=== PATIENT | male | born 1980 | race Two or more races ===

== ENCOUNTER 2020-10-05 22:39 | Inpatient (IN) | payer MEDICAID ==
[~2020-10-05] VITALS: Ht 195.6 cm; Wt 183.9 kg
--- NOTE | 2020-10-05 22:54 | NUR ---
BIB EMS PT AT [facility]. 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 PT STATES NO BLEEDING AT THIS TIME, PT HAS KEYA SOB AND DIFFICULTY CATCHING BREATH. PLACED ON ALL MONITORS AND STIPPED AND PLACED IN GOWN. AWAITING ERP EVAL
[2020-10-05] MEDS ORDERED: ONDANSETRON 2MG/ML, 2ML IVPush ONE (23:00)
[2020-10-05] MEDS ORDERED: ACETAMINOPHEN 500 MG TABLET PO ONE (23:00)
[2020-10-05] MEDS ORDERED: SODIUM CHLORIDE 0.9% 1,000ML IVBOLUS ONE (23:00)
[2020-10-05] MEDS ORDERED: VANCOMYCIN PER PHARMACY MC ONE (23:00)
[2020-10-05] MEDS ORDERED: MORPHINE SULFATE 4 MG/ML, 1ML IVPush PRN (23:00)
[2020-10-05] MEDS ORDERED: CEFTRIAXONE PMX 1GM/50ML 50 ML IVPB ONE (23:00)
[2020-10-05] MEDS ORDERED: VANCOMYCIN 2,500 MG in SODIUM CHLORIDE 0.9% 500 ML IV ONE (23:30)
[2020-10-05] MEDS ORDERED: CEFTRIAXONE PMX 1GM/50ML 50 ML ONE (23:41)
[2020-10-05] MEDS ORDERED: ONDANSETRON 2MG/ML, 2ML ONE (23:41)
[2020-10-05] MEDS ORDERED: ACETAMINOPHEN 500 MG TABLET ONE (23:42)
[2020-10-05] MEDS ORDERED: MORPHINE SULFATE 4 MG/ML, 1ML ONE (23:42)
[2020-10-05 23:52] LABS: MEAN CORPUSCULAR HEMOGLOBIN 26.8 pg (27.5-34.5); MEAN PLATELET VOLUME 8.5 fL (7.4-10.4); PLATELET COUNT 262 x10^3/uL (130-400); RED BLOOD COUNT 4.92 x10^6/uL (4.38-5.82); RED CELL DISTRIBUTION WIDTH 14.9 % (9.4-14.8)
--- NOTE | 2020-10-05 23:53 | NUR ---
[facility] HUNG AFTER BLOOD CULTURES. PT MEDICATED PER EMAR. PT ON ALL MONITORS, PT STILL HAS INCREASED WORK OF BREATHING
[2020-10-06 00:03] LABS: ALANINE AMINOTRANSFERASE 44 U/L (12-78); ALBUMIN 3.2 g/dL (3.4-5.0); ANION GAP 8 mmol/L (5-15); CALCIUM 9.2 mg/dL (8.5-10.1); CHLORIDE 100 mmol/L (98-107)
[2020-10-06 00:05] LABS: ALKALINE PHOSPHATASE 74 U/L (45-117); TOTAL PROTEIN 9.6 g/dL (6.4-8.2)
[2020-10-06 00:34] LABS: MD YES
[2020-10-06 00:37] LABS: ANISOCYTOSIS 1+; BANDS%(MANUAL) 23 % (0-7); LYMPH#(MANUAL) 0.63 x10^3/uL (1-3.4); LYMPHS% (MANUAL) 2 % (22-44); MONOS#(MANUAL) 0.31 x10^3/uL (0.3-2.7); MONOS% (MANUAL) 1 % (2-9); SEG#(MANUAL) 23.16 x10^3/uL (1.8-6.8); SEGS% (MANUAL) 74 % (42-75)
[2020-10-06 00:38] LABS: <PLATELET ESTIMATE> ADEQUATE; <PLT MORPHOLOGY> NORMAL PLT MORPH; PMNS WITH VACUOLES 1+
[2020-10-06] MEDS ORDERED: SODIUM CHLORIDE 0.9% 1,000ML IVBOLUS ONE (01:00)
--- NOTE | 2020-10-06 01:31 | NUR ---
REPORT GIVEN TO LANCE CARTY.
--- NOTE | 2020-10-06 01:46 | NUR ---
COVID SWAB TAKEN, VITALS UPDATED
[2020-10-06] MEDS ORDERED: morphine SULFATE 10 MG/ML, 1ML IVPush PRN (02:00)
[2020-10-06] MEDS ORDERED: VANCOMYCIN PER PHARMACY MC PRN (02:00)
[2020-10-06] MEDS ORDERED: MELATONIN 5 MG TABLET PO PRN (02:00)
[2020-10-06] MEDS ORDERED: LABETALOL 5MG/ML, 20ML IVPush PRN (02:00)
[2020-10-06] MEDS ORDERED: ONDANSETRON 2MG/ML, 2ML IVPush PRN (02:00)
[2020-10-06] MEDS ORDERED: THIAMINE 200 MG in SODIUM CHLORIDE 0.9% 50 ML IV ONE (02:00)
[2020-10-06] MEDS ORDERED: SODIUM CHLORIDE 0.9% 1,000 ML IV SCH (02:00)
[2020-10-06] MEDS ORDERED: PHARMACY MAY ADJ FOR RENAL FX MC PRN (02:00)
[2020-10-06] MEDS ORDERED: ACETAMINOPHEN 325 MG TABLET PO PRN (02:00)
[2020-10-06 02:10] VITALS: BP 124/79
[2020-10-06] MEDS ORDERED: PHARMACOKINETIC MONITORING MC PRN (02:30)
[2020-10-06] MEDS ORDERED: PHARMACOKINETIC CONSULTATION MC ONE (02:30)
[2020-10-06 02:41] LABS: CREATINE KINASE, TOTAL 2834 U/L (39-308)
[2020-10-06] MEDS: HEPARIN 5,000 UNITS/ML, 1ML SQ SCH ×2 (02:55→10:09)
[2020-10-06] MEDS: AMPICILLIN/SULBACTAM 3 GM in SODIUM CHLORIDE 0.9% 100 ML IV SCH ×4 (04:12→22:15)
[2020-10-06 04:27] LABS: CHOL/HDL RATIO 2.9; LDL/HDL RATIO 1.3 (0.5-3.0)
[2020-10-06 06:30] VITALS: BP 117/80
[2020-10-06] MEDS: MULTIVITAMIN 1 TABLET PO SCH (08:31)
[2020-10-06] MEDS: THIAMINE 100MG TABLET PO SCH (08:31)
[2020-10-06] MEDS: FOLIC ACID 1 MG TABLET PO SCH (08:31)
[2020-10-06] MEDS: SENNA/DOCUSATE TABLET PO SCH (08:32)
[2020-10-06 09:05] LABS: MEAN CORPUSCULAR HEMOGLOBIN 26.7 pg (27.5-34.5); MEAN CORPUSCULAR HGB CONC 32.7 g/dL (33.2-36.2); MEAN PLATELET VOLUME 8.6 fL (7.4-10.4); PLATELET COUNT 223 x10^3/uL (130-400); RED BLOOD COUNT 4.38 x10^6/uL (4.38-5.82); RED CELL DISTRIBUTION WIDTH 14.9 % (9.4-14.8)
[2020-10-06 09:31] LABS: ALBUMIN 2.8 g/dL (3.4-5.0); ANION GAP 10 mmol/L (5-15); CALCIUM 8.2 mg/dL (8.5-10.1); CHLORIDE 108 mmol/L (98-107)
[2020-10-06 09:32] LABS: MD YES
[2020-10-06 09:33] LABS: BAND#(MANUAL) 7.18 x10^3/uL; BANDS%(MANUAL) 25 % (0-7); LYMPH#(MANUAL) 0.57 x10^3/uL (1-3.4); LYMPHS% (MANUAL) 2 % (22-44); MONOS#(MANUAL) 0.86 x10^3/uL (0.3-2.7); MONOS% (MANUAL) 3 % (2-9); SEG#(MANUAL) 20.09 x10^3/uL (1.8-6.8); SEGS% (MANUAL) 70 % (42-75)
[2020-10-06 09:34] LABS: <PLATELET ESTIMATE> ADEQUATE; <PLT MORPHOLOGY> NORMAL PLT MORPH; <RBC MORPHOLOGY> NORMAL
[2020-10-06 09:46] LABS: ALANINE AMINOTRANSFERASE 37 U/L (12-78); ALKALINE PHOSPHATASE 61 U/L (45-117); BILIRUBIN,TOTAL 1.1 mg/dL (0.2-1.0); CREATINE KINASE, TOTAL 2058 U/L (39-308); CREATININE 2.92 mg/dL (0.7-1.3); TOTAL PROTEIN 8.2 g/dL (6.4-8.2)
[2020-10-06] MEDS: CARVEDILOL 6.25 MG TABLET PO SCH ×2 (10:10→17:45)
[2020-10-06 10:25] LABS: POTASSIUM,URINE RANDOM 78 mmol/L; SODIUM,URINE RANDOM 6 mmol/L
[2020-10-06 10:28] LABS: CHLORIDE,URINE RANDOM < 10 mmol/L
[2020-10-06 10:29] LABS: AMPHETAMINE SCREEN, URINE Positive (Negative); BARBITURATE SCREEN, URINE Negative (Negative); BENZODIAZEPINE SCREEN, URINE Negative (Negative); CANNABINOID SCREEN, URINE Positive (Negative); COCAINE SCREEN, URINE Negative (Negative); METHADONE SCREEN, URINE Negative (Negative); OPIATE SCREEN, URINE Positive (Negative)
[2020-10-06] MEDS: INSULIN LISPRO 100 UNITS/ML, PEN SQ-INSULIN SCH ×3 (11:39→21:00)
[2020-10-06 12:08] VITALS: BP 109/72
[2020-10-06] MEDS ORDERED: HEPARIN 5,000 UNITS/ML, 1ML IV ONE (13:00)
[2020-10-06 13:38] LABS: INTERNATIONAL NORMALIZED RATIO 1.22 (0.93-1.1); PROTHROMBIN TIME 12.9 Seconds (9.6-11.5)
[2020-10-06] MEDS: WARFARIN MODERAT DOSE PROTOCOL XX SCH (14:08)
[2020-10-06] MEDS: HEPARIN 25,000 UNITS/250ML PMX 250 ML IV PRN (14:35)
[2020-10-06] MEDS ORDERED: WARFARIN 7.5 MG TABLET PO-COUM ONE (18:00)
[2020-10-06 19:13] VITALS: BP 114/73
[2020-10-06 19:15] LABS: RAPID INFLUENZA A Negative (Negative); RAPID INFLUENZA B Negative (Negative)
[2020-10-06] MEDS: ACETAMINOPHEN 325 MG TABLET PO PRN (21:42)
[2020-10-06] MEDS: HEPARIN 5,000 UNITS/ML, 1ML IV PRN (22:16)
[2020-10-07 01:20] VITALS: BP 95/62
[2020-10-07 05:05] LABS: MEAN CORPUSCULAR HEMOGLOBIN 26.5 pg (27.5-34.5); MEAN CORPUSCULAR HGB CONC 32.5 g/dL (33.2-36.2); MEAN PLATELET VOLUME 8.4 fL (7.4-10.4); PLATELET COUNT 195 x10^3/uL (130-400); RED BLOOD COUNT 4.25 x10^6/uL (4.38-5.82); RED CELL DISTRIBUTION WIDTH 14.8 % (9.4-14.8)
[2020-10-07 05:06] LABS: ALBUMIN 2.4 g/dL (3.4-5.0); ANION GAP 6 mmol/L (5-15); CALCIUM 8.4 mg/dL (8.5-10.1); CHLORIDE 111 mmol/L (98-107)
[2020-10-07 05:10] LABS: ALANINE AMINOTRANSFERASE 32 U/L (12-78); ALKALINE PHOSPHATASE 64 U/L (45-117); BILIRUBIN,TOTAL 0.5 mg/dL (0.2-1.0); TOTAL PROTEIN 7.8 g/dL (6.4-8.2)
[2020-10-07] MEDS: AMPICILLIN/SULBACTAM 3 GM in SODIUM CHLORIDE 0.9% 100 ML IV SCH ×4 (05:11→22:41)
[2020-10-07] MEDS: CARVEDILOL 6.25 MG TABLET PO SCH ×2 (05:11→16:57)
[2020-10-07 05:12] VITALS: BP 103/70
[2020-10-07] MEDS: HEPARIN 5,000 UNITS/ML, 1ML IV PRN ×3 (06:04→19:57)
[2020-10-07 06:19] LABS: BAND#(MANUAL) 4.42 x10^3/uL; BANDS%(MANUAL) 20 % (0-7); LYMPH#(MANUAL) 0.88 x10^3/uL (1-3.4); LYMPHS% (MANUAL) 4 % (22-44); MD YES; SEG#(MANUAL) 16.13 x10^3/uL (1.8-6.8); SEGS% (MANUAL) 73 % (42-75)
[2020-10-07 06:21] LABS: BASOS#(MANUAL) 0.22 x10^3/uL (0-0.1); BASOS% (MANUAL) 1 % (0-1); EOS#(MANUAL) 0.22 x10^3/uL (0.0-0.4); EOS% (MANUAL) 1 % (1-7); MONOS#(MANUAL) 0.22 x10^3/uL (0.3-2.7); MONOS% (MANUAL) 1 % (2-9)
[2020-10-07 06:22] LABS: <PLATELET ESTIMATE> ADEQUATE; <PLT MORPHOLOGY> NORMAL PLT MORPH; PMNS WITH VACUOLES 2+
[2020-10-07 06:23] LABS: <RBC MORPHOLOGY> NORMAL
[2020-10-07 06:56] VITALS: BP 110/75
[2020-10-07] MEDS: INSULIN LISPRO 100 UNITS/ML, PEN SQ-INSULIN SCH ×4 (07:02→19:27)
[2020-10-07] MEDS: SENNA/DOCUSATE TABLET PO SCH (07:24)
[2020-10-07] MEDS ORDERED: DEXAMETHASONE 4 MG TABLET PO SCH (07:30)
[2020-10-07] MEDS: MULTIVITAMIN 1 TABLET PO SCH (07:32)
[2020-10-07] MEDS: FOLIC ACID 1 MG TABLET PO SCH (07:32)
[2020-10-07] MEDS: THIAMINE 100MG TABLET PO SCH (07:32)
[2020-10-07] MEDS: ACETAMINOPHEN 325 MG TABLET PO PRN (07:36)
[2020-10-07] MEDS: WARFARIN MODERAT DOSE PROTOCOL XX SCH (12:06)
[2020-10-07] MEDS: VANCOMYCIN 2,500 MG in SODIUM CHLORIDE 0.9% 500 ML IV SCH (12:06)
[2020-10-07 13:09] VITALS: BP 111/77
[2020-10-07 15:31] LABS: INTERNATIONAL NORMALIZED RATIO 1.92 (0.93-1.1); PROTHROMBIN TIME 20.2 Seconds (9.6-11.5)
[2020-10-07] MEDS: ALBUTEROL-IPRATROPIUM MDI INH INH SCH ×2 (15:38→22:42)
[2020-10-07] MEDS ORDERED: WARFARIN 5 MG TABLET PO-COUM ONE (16:42)
[2020-10-07] MEDS: HEPARIN 25,000 UNITS/250ML PMX 250 ML IV PRN (16:51)
[2020-10-07 16:56] VITALS: BP 114/75
[2020-10-07] MEDS ORDERED: WARFARIN 2.5 MG TABLET PO-COUM ONE (18:00)
[2020-10-07 19:48] VITALS: BP 104/69
[2020-10-07] MEDS ORDERED: ASCORBIC ACID 500 MG TABLET ONE (22:37)
[2020-10-07] MEDS: ASCORBIC ACID 500 MG TABLET PO SCH (22:42)
[2020-10-08 00:11] VITALS: BP 111/72
[2020-10-08] MEDS: VANCOMYCIN 2,500 MG in SODIUM CHLORIDE 0.9% 500 ML IV SCH ×2 (00:47→11:55)
[2020-10-08 02:03] LABS: MEAN CORPUSCULAR HEMOGLOBIN 26.9 pg (27.5-34.5); MEAN CORPUSCULAR HGB CONC 32.4 g/dL (33.2-36.2); PLATELET COUNT 200 x10^3/uL (130-400); RED BLOOD COUNT 4.18 x10^6/uL (4.38-5.82); RED CELL DISTRIBUTION WIDTH 14.7 % (9.4-14.8)
[2020-10-08 02:07] LABS: INTERNATIONAL NORMALIZED RATIO 2.38 (0.93-1.1)
[2020-10-08 02:37] LABS: MD YES
[2020-10-08] MEDS: HEPARIN 5,000 UNITS/ML, 1ML IV PRN (02:55)
[2020-10-08] MEDS: HEPARIN 25,000 UNITS/250ML PMX 250 ML IV PRN (02:57)
[2020-10-08 02:58] LABS: BAND#(MANUAL) 3.73 x10^3/uL; BANDS%(MANUAL) 18 % (0-7); LYMPH#(MANUAL) 1.24 x10^3/uL (1-3.4); LYMPHS% (MANUAL) 6 % (22-44); MONOS#(MANUAL) 0.62 x10^3/uL (0.3-2.7); MONOS% (MANUAL) 3 % (2-9); SEG#(MANUAL) 15.11 x10^3/uL (1.8-6.8); SEGS% (MANUAL) 73 % (42-75)
[2020-10-08 02:59] LABS: <RBC MORPHOLOGY> NORMAL
[2020-10-08 03:00] LABS: <PLATELET ESTIMATE> ADEQUATE; <PLT MORPHOLOGY> NORMAL PLT MORPH; PMNS WITH VACUOLES 1+; TOXIC GRAN 1+
[2020-10-08] MEDS ORDERED: CARVEDILOL 3.125 MG TABLET ONE (05:06)
[2020-10-08 05:10] VITALS: BP 115/79
[2020-10-08] MEDS: ALBUTEROL-IPRATROPIUM MDI INH INH SCH ×4 (05:10→20:21)
[2020-10-08] MEDS: CARVEDILOL 6.25 MG TABLET PO SCH ×3 (05:11→17:04)
[2020-10-08] MEDS: AMPICILLIN/SULBACTAM 3 GM in SODIUM CHLORIDE 0.9% 100 ML IV SCH ×4 (05:11→23:08)
[2020-10-08] MEDS: SENNA/DOCUSATE TABLET PO SCH (06:57)
[2020-10-08] MEDS: INSULIN LISPRO 100 UNITS/ML, PEN SQ-INSULIN SCH ×4 (07:10→20:46)
[2020-10-08] MEDS: FOLIC ACID 1 MG TABLET PO SCH (07:11)
[2020-10-08] MEDS: ZINC SULFATE 220 MG CAPSULE PO SCH (07:11)
[2020-10-08] MEDS: MULTIVITAMIN 1 TABLET PO SCH (07:11)
[2020-10-08] MEDS: CHOLECALCIFEROL 5,000u TAB PO SCH (07:11)
[2020-10-08] MEDS: DEXAMETHASONE 4 MG TABLET PO SCH (07:11)
[2020-10-08] MEDS: ASCORBIC ACID 500 MG TABLET PO SCH ×2 (07:11→17:04)
[2020-10-08] MEDS: THIAMINE 100MG TABLET PO SCH (07:11)
[2020-10-08 07:29] VITALS: BP 111/76
[2020-10-08] MEDS: WARFARIN MODERAT DOSE PROTOCOL XX SCH (12:01)
[2020-10-08 14:34] VITALS: BP 120/78
[2020-10-08] MEDS ORDERED: WARFARIN 2.5 MG TABLET PO-COUM ONE (18:00)
[2020-10-08 18:53] VITALS: BP 114/79
[2020-10-08] MEDS: ACETAMINOPHEN 325 MG TABLET PO PRN (21:25)
[2020-10-09 00:45] VITALS: BP 130/80
[2020-10-09] MEDS: ALBUTEROL-IPRATROPIUM MDI INH INH SCH ×4 (03:14→21:41)
[2020-10-09] MEDS: AMPICILLIN/SULBACTAM 3 GM in SODIUM CHLORIDE 0.9% 100 ML IV SCH ×4 (04:53→23:54)
[2020-10-09] MEDS: CARVEDILOL 6.25 MG TABLET PO SCH (04:54)
[2020-10-09] MEDS: VANCOMYCIN 2,500 MG in SODIUM CHLORIDE 0.9% 500 ML IV SCH (05:36)
[2020-10-09 06:56] VITALS: BP 134/84
[2020-10-09] MEDS: INSULIN LISPRO 100 UNITS/ML, PEN SQ-INSULIN SCH ×4 (07:00→21:43)
[2020-10-09 07:30] LABS: CREATININE 0.93 mg/dL (0.7-1.3)
[2020-10-09 07:40] LABS: INTERNATIONAL NORMALIZED RATIO 2.49 (0.93-1.1); PROTHROMBIN TIME 26.2 Seconds (9.6-11.5)
[2020-10-09] MEDS: CHOLECALCIFEROL 5,000u TAB PO SCH (08:19)
[2020-10-09] MEDS: ASCORBIC ACID 500 MG TABLET PO SCH ×2 (08:20→17:46)
[2020-10-09] MEDS: SENNA/DOCUSATE TABLET PO SCH (08:20)
[2020-10-09] MEDS: MULTIVITAMIN 1 TABLET PO SCH (08:20)
[2020-10-09] MEDS: DEXAMETHASONE 4 MG TABLET PO SCH (08:20)
[2020-10-09] MEDS: THIAMINE 100MG TABLET PO SCH (08:20)
[2020-10-09] MEDS: FOLIC ACID 1 MG TABLET PO SCH (08:20)
[2020-10-09] MEDS: ZINC SULFATE 220 MG CAPSULE PO SCH (08:20)
[2020-10-09] MEDS: WARFARIN MODERAT DOSE PROTOCOL XX SCH (12:00)
[2020-10-09 12:05] VITALS: BP 117/76
[2020-10-09] MEDS: ACETAMINOPHEN 325 MG TABLET PO PRN (16:05)
[2020-10-09 17:52] VITALS: BP 142/88
[2020-10-09] MEDS ORDERED: WARFARIN 3 MG TABLET PO-COUM ONE (18:00)
[2020-10-09] MEDS ORDERED: CARVEDILOL 6.25 MG TABLET PO SCH (18:00)
[2020-10-09 20:04] VITALS: BP 128/81
[2020-10-10] MEDS: VANCOMYCIN 2,500 MG in SODIUM CHLORIDE 0.9% 500 ML IV SCH ×2 (01:01→18:13)
[2020-10-10 02:01] VITALS: BP 136/88
[2020-10-10] MEDS: ALBUTEROL-IPRATROPIUM MDI INH INH SCH ×4 (03:25→21:35)
[2020-10-10] MEDS: ACETAMINOPHEN 325 MG TABLET PO PRN (03:28)
[2020-10-10] MEDS: CARVEDILOL 3.125 MG TABLET PO SCH ×2 (06:00→17:06)
[2020-10-10 06:23] LABS: D-DIMER 4.97 ug/mlFEU (0.00-0.52); INTERNATIONAL NORMALIZED RATIO 3.1 (0.93-1.1); PROTHROMBIN TIME 32.5 Seconds (9.6-11.5)
[2020-10-10] MEDS: AMPICILLIN/SULBACTAM 3 GM in SODIUM CHLORIDE 0.9% 100 ML IV SCH ×2 (06:26→12:00)
[2020-10-10 06:39] LABS: C-REACTIVE PROTEIN, QUANT 5.7 mg/dL (0.02-0.49)
[2020-10-10 07:01] VITALS: BP 140/89
[2020-10-10] MEDS: INSULIN LISPRO 100 UNITS/ML, PEN SQ-INSULIN SCH (08:05)
[2020-10-10] MEDS ORDERED: DEXAMETHASONE 4 MG TABLET PO SCH (09:00)
[2020-10-10] MEDS: FOLIC ACID 1 MG TABLET PO SCH (10:04)
[2020-10-10] MEDS: MULTIVITAMIN 1 TABLET PO SCH (10:04)
[2020-10-10] MEDS: THIAMINE 100MG TABLET PO SCH (10:04)
[2020-10-10] MEDS: ASCORBIC ACID 500 MG TABLET PO SCH ×2 (10:05→17:05)
[2020-10-10] MEDS: ZINC SULFATE 220 MG CAPSULE PO SCH (10:05)
[2020-10-10] MEDS: CHOLECALCIFEROL 5,000u TAB PO SCH (10:05)
[2020-10-10] MEDS: SENNA/DOCUSATE TABLET PO SCH (10:05)
[2020-10-10] MEDS: WARFARIN MODERAT DOSE PROTOCOL XX SCH (11:33)
[2020-10-10 12:45] VITALS: BP 129/91
[2020-10-10] MEDS ORDERED: ERTAPENEM 1 GM in SODIUM CHLORIDE 0.9% 50 ML IV SCH (17:00)
[2020-10-10] MEDS: metFORMIN 850 MG TABLET PO SCH (17:06)
[2020-10-10] MEDS ORDERED: WARFARIN 1 MG TABLET PO-COUM ONE (18:00)
[2020-10-10 20:34] VITALS: BP 134/90
[2020-10-11 01:58] VITALS: BP 125/72
[2020-10-11 05:24] LABS: MEAN CORPUSCULAR HGB CONC 32.9 g/dL (33.2-36.2); MEAN PLATELET VOLUME 8.2 fL (7.4-10.4); PLATELET COUNT 272 x10^3/uL (130-400); RED BLOOD COUNT 4.54 x10^6/uL (4.38-5.82); RED CELL DISTRIBUTION WIDTH 14.9 % (9.4-14.8)
[2020-10-11 05:30] LABS: INTERNATIONAL NORMALIZED RATIO 2.53 (0.93-1.1); PROTHROMBIN TIME 26.6 Seconds (9.6-11.5)
[2020-10-11] MEDS: CARVEDILOL 3.125 MG TABLET PO SCH ×2 (05:51→17:12)
[2020-10-11] MEDS: ALBUTEROL-IPRATROPIUM MDI INH INH SCH ×3 (05:55→17:13)
[2020-10-11 06:09] LABS: MD YES
[2020-10-11 06:11] LABS: BAND#(MANUAL) 0.11 x10^3/uL; BANDS%(MANUAL) 1 % (0-7); EOS#(MANUAL) 0.22 x10^3/uL (0.0-0.4); EOS% (MANUAL) 2 % (1-7); LYMPH#(MANUAL) 1.84 x10^3/uL (1-3.4); LYMPHS% (MANUAL) 17 % (22-44); METAMYELOCYTES# (MANUAL) 0.11 x10^3/uL (0-0); METAMYELOCYTES% (MANUAL) 1 % (0-1); MONOS#(MANUAL) 0.97 x10^3/uL (0.3-2.7); MONOS% (MANUAL) 9 % (2-9); MYELOCYTES# (MANUAL) 0.11 x10^3/uL (0-0); MYELOCYTES% (MANUAL) 1 % (0-0); SEG#(MANUAL) 7.45 x10^3/uL (1.8-6.8); SEGS% (MANUAL) 69 % (42-75)
[2020-10-11 06:12] LABS: <PLATELET ESTIMATE> ADEQUATE; <PLT MORPHOLOGY> NORMAL PLT MORPH; <RBC MORPHOLOGY> NORMAL
[2020-10-11 06:40] VITALS: BP 118/62
[2020-10-11] MEDS: AMOXICILLIN/CLAV 875-125MG TABLET PO SCH ×2 (08:46→21:15)
[2020-10-11] MEDS: DOXYCYCLINE 100MG CAP PO SCH ×2 (08:46→21:15)
[2020-10-11] MEDS: ASCORBIC ACID 500 MG TABLET PO SCH ×2 (08:46→16:30)
[2020-10-11] MEDS: FOLIC ACID 1 MG TABLET PO SCH (08:47)
[2020-10-11] MEDS: THIAMINE 100MG TABLET PO SCH (08:51)
[2020-10-11] MEDS: ZINC SULFATE 220 MG CAPSULE PO SCH (08:51)
[2020-10-11] MEDS: metFORMIN 850 MG TABLET PO SCH ×2 (08:51→16:30)
[2020-10-11] MEDS: MULTIVITAMIN 1 TABLET PO SCH (08:52)
[2020-10-11] MEDS: SENNA/DOCUSATE TABLET PO SCH (08:52)
[2020-10-11] MEDS: CHOLECALCIFEROL 5,000u TAB PO SCH (08:54)
[2020-10-11] MEDS: WARFARIN MODERAT DOSE PROTOCOL XX SCH (11:48)
[2020-10-11 12:15] VITALS: BP 120/73
[2020-10-11] MEDS: ACETAMINOPHEN 325 MG TABLET PO PRN ×2 (12:30→21:15)
[2020-10-11 16:28] VITALS: BP 124/79
[2020-10-11] MEDS ORDERED: WARFARIN 2.5 MG TABLET PO-COUM ONE (18:00)
[2020-10-11 19:55] VITALS: BP 117/72
[2020-10-12] MEDS: ALBUTEROL-IPRATROPIUM MDI INH INH SCH ×4 (00:02→17:11)
[2020-10-12 00:36] VITALS: BP 108/73
[2020-10-12 05:23] LABS: INTERNATIONAL NORMALIZED RATIO 2.1 (0.93-1.1); PROTHROMBIN TIME 22.1 Seconds (9.6-11.5)
[2020-10-12] MEDS: CARVEDILOL 3.125 MG TABLET PO SCH ×2 (05:54→17:14)
[2020-10-12 06:42] VITALS: BP 138/84
[2020-10-12] MEDS: SENNA/DOCUSATE TABLET PO SCH (07:38)
[2020-10-12] MEDS: MULTIVITAMIN 1 TABLET PO SCH (07:38)
[2020-10-12] MEDS: FOLIC ACID 1 MG TABLET PO SCH (07:39)
[2020-10-12] MEDS: THIAMINE 100MG TABLET PO SCH (07:39)
[2020-10-12] MEDS: ZINC SULFATE 220 MG CAPSULE PO SCH (07:39)
[2020-10-12] MEDS: metFORMIN 850 MG TABLET PO SCH ×2 (07:39→16:02)
[2020-10-12] MEDS: ASCORBIC ACID 500 MG TABLET PO SCH ×2 (07:39→16:02)
[2020-10-12] MEDS: CHOLECALCIFEROL 5,000u TAB PO SCH (07:39)
[2020-10-12] MEDS: AMOXICILLIN/CLAV 875-125MG TABLET PO SCH ×2 (07:42→20:54)
[2020-10-12] MEDS: DOXYCYCLINE 100MG CAP PO SCH ×2 (07:53→20:54)
[2020-10-12] MEDS ORDERED: SENNA/DOCUSATE TABLET PO PRN (08:00)
[2020-10-12] MEDS: KETOROLAC 30 MG/1 ML IVPush PRN (10:08)
[2020-10-12] MEDS: LACTOBACILLUS CHEW TABLET PO SCH ×3 (10:08→20:54)
[2020-10-12] MEDS: ACETAMINOPHEN 325 MG TABLET PO PRN (11:12)
[2020-10-12] MEDS: WARFARIN MODERAT DOSE PROTOCOL XX SCH (12:00)
[2020-10-12 12:06] VITALS: BP 123/80
[2020-10-12 16:01] VITALS: BP 135/87
[2020-10-12] MEDS ORDERED: WARFARIN 2.5 MG TABLET PO-COUM ONE (18:00)
[2020-10-12 20:27] VITALS: BP 128/82
[2020-10-13] MEDS: ALBUTEROL-IPRATROPIUM MDI INH INH SCH ×4 (00:06→17:13)
[2020-10-13 00:30] VITALS: BP 137/83
[2020-10-13 05:32] VITALS: BP 132/71
[2020-10-13] MEDS: CARVEDILOL 3.125 MG TABLET PO SCH ×2 (05:33→17:13)
[2020-10-13 06:18] LABS: INTERNATIONAL NORMALIZED RATIO 2.17 (0.93-1.1); PROTHROMBIN TIME 22.8 Seconds (9.6-11.5)
[2020-10-13 06:21] VITALS: BP 109/71
[2020-10-13] MEDS: LACTOBACILLUS CHEW TABLET PO SCH ×3 (07:17→21:27)
[2020-10-13] MEDS: CHOLECALCIFEROL 5,000u TAB PO SCH (07:18)
[2020-10-13] MEDS: KETOROLAC 30 MG/1 ML IVPush PRN ×2 (07:18→21:38)
[2020-10-13] MEDS: THIAMINE 100MG TABLET PO SCH (07:18)
[2020-10-13] MEDS: DOXYCYCLINE 100MG CAP PO SCH ×2 (07:18→21:26)
[2020-10-13] MEDS: MULTIVITAMIN 1 TABLET PO SCH (07:18)
[2020-10-13] MEDS: AMOXICILLIN/CLAV 875-125MG TABLET PO SCH ×2 (07:18→21:26)
[2020-10-13] MEDS: ZINC SULFATE 220 MG CAPSULE PO SCH (07:18)
[2020-10-13] MEDS: ASCORBIC ACID 500 MG TABLET PO SCH (07:18)
[2020-10-13] MEDS: metFORMIN 850 MG TABLET PO SCH ×2 (07:19→16:15)
[2020-10-13] MEDS: WARFARIN MODERAT DOSE PROTOCOL XX SCH (11:54)
[2020-10-13 12:00] VITALS: BP 109/71
[2020-10-13 16:14] VITALS: BP 143/84
[2020-10-13] MEDS ORDERED: WARFARIN 2.5 MG TABLET PO-COUM ONE (18:00)
[2020-10-13 18:36] VITALS: BP 115/78
[2020-10-14 00:25] VITALS: BP 129/83
[2020-10-14] MEDS: ALBUTEROL-IPRATROPIUM MDI INH INH SCH ×4 (01:20→17:48)
[2020-10-14 06:18] LABS: INTERNATIONAL NORMALIZED RATIO 2.05 (0.93-1.1); PROTHROMBIN TIME 21.6 Seconds (9.6-11.5)
[2020-10-14 06:21] VITALS: BP 101/68
[2020-10-14] MEDS: CARVEDILOL 3.125 MG TABLET PO SCH ×2 (06:22→17:47)
[2020-10-14 06:36] VITALS: BP 111/68
[2020-10-14] MEDS: THIAMINE 100MG TABLET PO SCH (08:21)
[2020-10-14] MEDS: LACTOBACILLUS CHEW TABLET PO SCH ×3 (08:21→20:58)
[2020-10-14] MEDS: DOXYCYCLINE 100MG CAP PO SCH ×2 (08:21→20:58)
[2020-10-14] MEDS: CHOLECALCIFEROL 5,000u TAB PO SCH (08:21)
[2020-10-14] MEDS: metFORMIN 850 MG TABLET PO SCH ×2 (08:21→17:48)
[2020-10-14] MEDS: AMOXICILLIN/CLAV 875-125MG TABLET PO SCH ×2 (08:21→20:57)
[2020-10-14] MEDS: MULTIVITAMIN 1 TABLET PO SCH (08:22)
[2020-10-14] MEDS: WARFARIN MODERAT DOSE PROTOCOL XX SCH (12:00)
[2020-10-14 14:42] VITALS: BP 129/86
[2020-10-14] MEDS ORDERED: WARFARIN 3 MG TABLET PO-COUM ONE (18:00)
[2020-10-14 20:52] VITALS: BP 121/68
[2020-10-14] MEDS: KETOROLAC 30 MG/1 ML IVPush PRN (21:06)
[2020-10-15] MEDS: ALBUTEROL-IPRATROPIUM MDI INH INH SCH ×2 (00:06→05:50)
[2020-10-15 01:18] VITALS: BP 96/63
[2020-10-15 05:49] VITALS: BP 118/74
[2020-10-15] MEDS: CARVEDILOL 3.125 MG TABLET PO SCH (05:50)
[2020-10-15 06:11] LABS: INTERNATIONAL NORMALIZED RATIO 1.99 (0.93-1.1); PROTHROMBIN TIME 20.9 Seconds (9.6-11.5)
[2020-10-15 07:57] VITALS: BP 141/82
[2020-10-15] MEDS ORDERED: Initiate Coumadin Protocol PO-COUM (09:16)
[2020-10-15] MEDS ORDERED: METF850T PO (09:16)
[2020-10-15] MEDS ORDERED: AMOX1TAB12 PO (09:16)
[2020-10-15] MEDS ORDERED: DOXY100C2 PO (09:16)
[2020-10-15] MEDS ORDERED: THIA100T67 PO (09:16)
[2020-10-15] MEDS ORDERED: CHOL500045 PO (09:16)
[2020-10-15] MEDS ORDERED: CARV3.1212 PO (09:16)
[2020-10-15] MEDS ORDERED: MULT-449 PO (09:16)
[2020-10-15] MEDS ORDERED: HYDR-3341 PO (09:16)
[2020-10-15] MEDS: THIAMINE 100MG TABLET PO SCH (09:56)
[2020-10-15] MEDS: AMOXICILLIN/CLAV 875-125MG TABLET PO SCH (09:56)
[2020-10-15] MEDS: LACTOBACILLUS CHEW TABLET PO SCH (09:56)
[2020-10-15] MEDS: CHOLECALCIFEROL 5,000u TAB PO SCH (09:57)
[2020-10-15] MEDS: MULTIVITAMIN 1 TABLET PO SCH (09:57)
[2020-10-15] MEDS: DOXYCYCLINE 100MG CAP PO SCH (09:57)
[2020-10-15] MEDS: metFORMIN 850 MG TABLET PO SCH (09:57)
== END 2020-10-15 13:15 | disposition home or self-care (01) | DRG 871 ==
LOC: ED 10-06 00:19 → EDIP 10-06 01:16 → 4EST 10-06 02:02
PROVIDERS: ADMIT Family Medicine; ATTEND Internal Medicine
PROC: 5A09357 Assistance with Respiratory Ventilation, Less than 24 Consecutive Hours, Continuous Positive Airway Pressure (ICD-10-PCS; principal; 2020-10-06)
PROC: 5A09357 Assistance with Respiratory Ventilation, Less than 24 Consecutive Hours, Continuous Positive Airway Pressure (ICD-10-PCS; 2020-10-07)
DX: A41.89 Other specified sepsis (principal); U07.1 COVID-19; J12.89 Other viral pneumonia; J96.01 Acute respiratory failure with hypoxia; G93.41 Metabolic encephalopathy; J96.02 Acute respiratory failure with hypercapnia; L03.116 Cellulitis of left lower limb; N17.9 Acute kidney failure, unspecified; L03.115 Cellulitis of right lower limb; D68.59 Other primary thrombophilia; E46 Unspecified protein-calorie malnutrition; Z68.41 Body mass index [BMI] 40.0-44.9, adult; E66.2 Morbid (severe) obesity with alveolar hypoventilation; E87.1 Hypo-osmolality and hyponatremia; J44.0 Chronic obstructive pulmonary disease with (acute) lower respiratory infection; M62.82 Rhabdomyolysis; R65.20 Severe sepsis without septic shock; E11.40 Type 2 diabetes mellitus with diabetic neuropathy, unspecified; E11.65 Type 2 diabetes mellitus with hyperglycemia; E78.5 Hyperlipidemia, unspecified; E87.70 Fluid overload, unspecified; F12.90 Cannabis use, unspecified, uncomplicated; F17.200 Nicotine dependence, unspecified, uncomplicated; G47.33 Obstructive sleep apnea (adult) (pediatric); I10 Essential (primary) hypertension; I83.93 Asymptomatic varicose veins of bilateral lower extremities; I87.2 Venous insufficiency (chronic) (peripheral); K21.9 Gastro-esophageal reflux disease without esophagitis; Z79.84 Long term (current) use of oral hypoglycemic drugs; Z82.61 Family history of arthritis; Z86.718 Personal history of other venous thrombosis and embolism; Z90.49 Acquired absence of other specified parts of digestive tract; Z71.6 Tobacco abuse counseling
CPT/HCPCS: 36415; 36600; 71045; 76770; 80053; 80061; 80202; 80307; 80320; 82330; 82436; 82550; 82565; 82570; 82728; 82803; 82962; 83036; 83605; 83615; 83735; 83880; 84100; 84133; 84145; 84300; 85025; 85379; 85520; 85610; 86140; 87040; 87400; 93005; 93306; 93970; 94660; 96365; 96375; G0378; J0295; J0696; J1335; J1644; J1885; J2405; J3370; J3411; G0480; J1815; J2270; J7030; J7040; U0003

== ENCOUNTER 2020-10-19 15:58 | Inpatient (IN) | payer MEDICAID ==
[~2020-10-19] VITALS: Ht 195.6 cm; Wt 191.0 kg
[~2020-10-19 15:58] MED LIST: AMOX1TAB12 PO; CARV3.1212 PO; CHOL500045 PO; DOXY100C2 PO; HYDR-3341 PO; Initiate Coumadin Protocol PO-COUM; METF850T PO; MULT-449 PO; THIA100T67 PO
--- NOTE | 2020-10-19 16:20 | NUR ---
MOTHERS HELPER: PT TO ROOM VIA WHEELCHAIR FROM [facility]
[2020-10-19 16:54] LABS: BASOPHILS % (AUTO) 1 % (0-1); EOSINOPHILS % (AUTO) 1 % (1-7); LYMPHOCYTES % (AUTO) 8 % (22-44); MEAN CORPUSCULAR HEMOGLOBIN 27.3 pg (27.5-34.5); MEAN CORPUSCULAR HGB CONC 33.1 g/dL (33.2-36.2); MEAN PLATELET VOLUME 7.5 fL (7.4-10.4); MONOCYTES % (AUTO) 9 % (2-9); NEUTROPHILS % (AUTO) 81 % (42-75); PLATELET COUNT 466 x10^3/uL (130-400); RED BLOOD COUNT 4.82 x10^6/uL (4.38-5.82)
[2020-10-19 16:56] LABS: MD NO
[2020-10-19 17:03] LABS: ANION GAP 7 mmol/L (5-15); CALCIUM 8.9 mg/dL (8.5-10.1); CHLORIDE 103 mmol/L (98-107); CREATININE 1.63 mg/dL (0.7-1.3)
[2020-10-19] MEDS ORDERED: ONDANSETRON 2MG/ML, 2ML ONE (17:42)
[2020-10-19] MEDS ORDERED: MORPHINE SULFATE 4 MG/ML, 1ML ONE (17:43)
--- NOTE | 2020-10-19 17:47 | NUR ---
KIERAN SENT TO PHARMACY FOR ANCEF 2G
[2020-10-19] MEDS ORDERED: ONDANSETRON 2MG/ML, 2ML IVPush ONE (18:00)
[2020-10-19] MEDS ORDERED: CEFAZOLIN 2,000 MG in SODIUM CHLORIDE 0.9% 50 ML IV ONE (18:00)
[2020-10-19] MEDS ORDERED: SODIUM CHLORIDE 0.9% 1,000ML IVBOLUS ONE (18:00)
[2020-10-19] MEDS ORDERED: MORPHINE SULFATE 4 MG/ML, 1ML IVPush ONE (18:00)
[2020-10-19] MEDS ORDERED: VANCOMYCIN PER PHARMACY MC PRN ×3 (18:00→19:00)
[2020-10-19] MEDS ORDERED: VANCOMYCIN 2,500 MG in SODIUM CHLORIDE 0.9% 500 ML IV ONE (18:30)
[2020-10-19] MEDS ORDERED: ONDANSETRON ODT 4 MG PO PRN (19:00)
[2020-10-19] MEDS ORDERED: ACETAMINOPHEN 325 MG TABLET PO PRN (19:00)
[2020-10-19] MEDS ORDERED: BISACODYL 10 MG SUPP PR PRN (19:00)
[2020-10-19] MEDS ORDERED: POLYETHYLENE GLYCOL 17 GM PACKET PO PRN (19:00)
[2020-10-19 20:13] VITALS: BP 145/83
[2020-10-19 20:14] VITALS: BP 143/63
[2020-10-19] MEDS: SODIUM CHLORIDE 0.9% 1,000 ML IV SCH (20:44)
[2020-10-19] MEDS ORDERED: PHARMACOKINETIC CONSULTATION MC ONE (22:00)
[2020-10-19] MEDS ORDERED: PHARMACOKINETIC MONITORING MC PRN (22:00)
[2020-10-19] MEDS: CARVEDILOL 3.125 MG TABLET PO SCH (22:17)
[2020-10-19] MEDS: metFORMIN 850 MG TABLET PO SCH (22:17)
[2020-10-19] MEDS: HEPARIN 5,000 UNITS/ML, 1ML SQ SCH (22:18)
[2020-10-19] MEDS: AMPICILLIN/SULBACTAM 3 GM in SODIUM CHLORIDE 0.9% 100 ML IV SCH (23:54)
[2020-10-20 01:30] VITALS: BP 144/78
[2020-10-20] MEDS: SODIUM CHLORIDE 0.9% 1,000 ML IV SCH ×3 (02:36→17:45)
[2020-10-20 05:44] VITALS: BP 112/74
[2020-10-20] MEDS: HEPARIN 5,000 UNITS/ML, 1ML SQ SCH ×3 (05:46→18:33)
[2020-10-20] MEDS: CARVEDILOL 3.125 MG TABLET PO SCH ×2 (05:46→17:43)
[2020-10-20] MEDS: OXYcodone IR 5MG TABLET PO PRN ×3 (05:46→21:46)
[2020-10-20] MEDS: AMPICILLIN/SULBACTAM 3 GM in SODIUM CHLORIDE 0.9% 100 ML IV SCH ×3 (05:47→17:41)
[2020-10-20] MEDS ORDERED: VANCOMYCIN 2,500 MG in SODIUM CHLORIDE 0.9% 500 ML IV SCH (06:00)
[2020-10-20 07:50] VITALS: BP 109/73
[2020-10-20] MEDS: metFORMIN 850 MG TABLET PO SCH ×2 (08:00→16:15)
[2020-10-20 08:04] LABS: BASOPHILS % (AUTO) 1 % (0-1); EOSINOPHILS % (AUTO) 6 % (1-7); LYMPHOCYTES % (AUTO) 22 % (22-44); MEAN CORPUSCULAR HEMOGLOBIN 26.9 pg (27.5-34.5); MEAN CORPUSCULAR HGB CONC 32.7 g/dL (33.2-36.2); MEAN PLATELET VOLUME 7.4 fL (7.4-10.4); MONOCYTES % (AUTO) 15 % (2-9); NEUTROPHILS % (AUTO) 56 % (42-75); PLATELET COUNT 382 x10^3/uL (130-400); RED BLOOD COUNT 4.32 x10^6/uL (4.38-5.82)
[2020-10-20 08:12] LABS: MD NO
[2020-10-20 08:14] LABS: ANION GAP 3 mmol/L (5-15); CALCIUM 8.1 mg/dL (8.5-10.1); CHLORIDE 111 mmol/L (98-107)
[2020-10-20 08:16] LABS: CREATININE 1.18 mg/dL (0.7-1.3)
[2020-10-20] MEDS: THIAMINE 100MG TABLET PO SCH (08:18)
[2020-10-20] MEDS: CHOLECALCIFEROL 5,000u TAB PO SCH (08:19)
[2020-10-20] MEDS: MULTIVITAMIN 1 TABLET PO SCH (08:19)
[2020-10-20] MEDS: SENNA/DOCUSATE TABLET PO SCH (08:20)
[2020-10-20 13:26] VITALS: BP 118/77
[2020-10-20 17:44] VITALS: BP 107/69
[2020-10-20 19:13] VITALS: BP 121/80
[2020-10-21] MEDS: SODIUM CHLORIDE 0.9% 1,000 ML IV SCH ×2 (00:02→10:41)
[2020-10-21] MEDS: AMPICILLIN/SULBACTAM 3 GM in SODIUM CHLORIDE 0.9% 100 ML IV SCH ×2 (00:02→05:48)
[2020-10-21 00:57] VITALS: BP 137/81
[2020-10-21] MEDS: HEPARIN 5,000 UNITS/ML, 1ML SQ SCH ×3 (03:36→18:11)
[2020-10-21] MEDS: OXYcodone IR 5MG TABLET PO PRN ×3 (03:38→21:33)
[2020-10-21] MEDS: CARVEDILOL 3.125 MG TABLET PO SCH ×2 (05:48→18:11)
[2020-10-21 06:08] LABS: BASOPHILS % (AUTO) 1 % (0-1); EOSINOPHILS % (AUTO) 7 % (1-7); LYMPHOCYTES % (AUTO) 28 % (22-44); MEAN CORPUSCULAR HEMOGLOBIN 27.5 pg (27.5-34.5); MEAN CORPUSCULAR HGB CONC 33.4 g/dL (33.2-36.2); MEAN PLATELET VOLUME 7.9 fL (7.4-10.4); MONOCYTES % (AUTO) 13 % (2-9); NEUTROPHILS % (AUTO) 52 % (42-75); PLATELET COUNT 351 x10^3/uL (130-400); RED BLOOD COUNT 4.22 x10^6/uL (4.38-5.82); RED CELL DISTRIBUTION WIDTH 14.9 % (9.4-14.8)
[2020-10-21 06:13] LABS: MD NO
[2020-10-21 06:28] LABS: CHLORIDE 110 mmol/L (98-107)
[2020-10-21 07:32] VITALS: BP 102/70
[2020-10-21] MEDS: SENNA/DOCUSATE TABLET PO SCH (07:48)
[2020-10-21] MEDS: MULTIVITAMIN 1 TABLET PO SCH (08:01)
[2020-10-21] MEDS: CHOLECALCIFEROL 5,000u TAB PO SCH (08:01)
[2020-10-21] MEDS: THIAMINE 100MG TABLET PO SCH (08:01)
[2020-10-21] MEDS: metFORMIN 850 MG TABLET PO SCH ×2 (08:01→16:40)
[2020-10-21 08:33] LABS: ANION GAP 4 mmol/L (5-15); CALCIUM 8.7 mg/dL (8.5-10.1); CREATININE 1.08 mg/dL (0.7-1.3)
[2020-10-21] MEDS: AMOXICILLIN/CLAV 875-125MG TABLET PO SCH ×2 (11:29→21:01)
[2020-10-21 14:00] VITALS: BP 143/85
[2020-10-21 18:10] VITALS: BP 112/74
[2020-10-21 20:43] VITALS: BP 110/77
[2020-10-22 01:40] VITALS: BP 121/79
[2020-10-22] MEDS: HEPARIN 5,000 UNITS/ML, 1ML SQ SCH ×2 (02:52→11:28)
[2020-10-22] MEDS: OXYcodone IR 5MG TABLET PO PRN ×3 (02:54→13:01)
[2020-10-22] MEDS: CARVEDILOL 3.125 MG TABLET PO SCH (06:00)
[2020-10-22 06:59] VITALS: BP 109/67
[2020-10-22 07:35] LABS: BASOPHILS % (AUTO) 1 % (0-1); EOSINOPHILS % (AUTO) 7 % (1-7); LYMPHOCYTES % (AUTO) 27 % (22-44); MEAN CORPUSCULAR HEMOGLOBIN 27.5 pg (27.5-34.5); MEAN CORPUSCULAR HGB CONC 33.4 g/dL (33.2-36.2); MEAN PLATELET VOLUME 7.9 fL (7.4-10.4); MONOCYTES % (AUTO) 10 % (2-9); NEUTROPHILS % (AUTO) 55 % (42-75); PLATELET COUNT 364 x10^3/uL (130-400); RED BLOOD COUNT 4.07 x10^6/uL (4.38-5.82); RED CELL DISTRIBUTION WIDTH 14.9 % (9.4-14.8)
[2020-10-22 07:40] LABS: MD NO
[2020-10-22] MEDS: AMOXICILLIN/CLAV 875-125MG TABLET PO SCH (08:31)
[2020-10-22] MEDS: MULTIVITAMIN 1 TABLET PO SCH (08:31)
[2020-10-22] MEDS: SENNA/DOCUSATE TABLET PO SCH ×2 (08:31→08:36)
[2020-10-22] MEDS: THIAMINE 100MG TABLET PO SCH (08:31)
[2020-10-22] MEDS: CHOLECALCIFEROL 5,000u TAB PO SCH (08:31)
[2020-10-22] MEDS: metFORMIN 850 MG TABLET PO SCH (08:31)
[2020-10-22] MEDS ORDERED: AMOX1TAB12 PO (11:26)
[2020-10-22 14:58] VITALS: BP 120/84
== END 2020-10-22 16:00 | disposition home or self-care (01) | DRG 872 ==
LOC: ED 17:23 → EDIP 18:21 → 4NE 20:00
PROVIDERS: ADMIT Family Medicine; ATTEND Family Medicine
DX: A41.9 Sepsis, unspecified organism (principal); L03.115 Cellulitis of right lower limb; L03.116 Cellulitis of left lower limb; Z68.42 Body mass index [BMI] 45.0-49.9, adult; I12.9 Hypertensive chronic kidney disease with stage 1 through stage 4 chronic kidney disease, or unspecified chronic kidney disease; N18.9 Chronic kidney disease, unspecified; J44.9 Chronic obstructive pulmonary disease, unspecified; R65.20 Severe sepsis without septic shock; E11.22 Type 2 diabetes mellitus with diabetic chronic kidney disease; E66.01 Morbid (severe) obesity due to excess calories; I87.2 Venous insufficiency (chronic) (peripheral); F10.10 Alcohol abuse, uncomplicated; F17.210 Nicotine dependence, cigarettes, uncomplicated; K21.9 Gastro-esophageal reflux disease without esophagitis; E78.5 Hyperlipidemia, unspecified; Z59.0 Homelessness; Z91.14 Patient's other noncompliance with medication regimen; Z86.718 Personal history of other venous thrombosis and embolism; Z79.899 Other long term (current) drug therapy; Z82.61 Family history of arthritis; Z65.3 Problems related to other legal circumstances
CPT/HCPCS: 36415; 80048; 82040; 83036; 83605; 85025; 87040; 93005; 93970; 96374; 96375; 99285; G0378; J0295; J0690; J1644; J2405; J3370; J2270; J7030; J7040

== ENCOUNTER 2020-12-19 14:18 | Emergency (ER) | payer MEDICAID ==
[~2020-12-19] VITALS: Ht 195.6 cm; Wt 191.5 kg
--- NOTE | 2020-12-19 14:54 | NUR ---
report recived. pt sitting in bed no distress.
--- NOTE | 2020-12-19 14:57 | NUR ---
pt in bed on tele.
--- NOTE | 2020-12-19 16:39 | NUR ---
TASK RN: PT VSS REASSESSED. PT NEEDS MET AT THIS TIME. PT RESTING ON ED GURNEY WATCHING TV.
--- NOTE | 2020-12-19 17:53 | NUR ---
PT IN BED. WATCHING TV
--- NOTE | 2020-12-19 18:45 | NUR ---
IR AT BED SIDE FOR PICC PLACEMENT
[2020-12-19] MEDS ORDERED: OMNIPAQUE 350 MG/ML, 100ML BOTTLE ONE (19:07)
--- NOTE | 2020-12-19 19:11 | NUR ---
PT DOWN TO CT
--- NOTE | 2020-12-19 19:25 | NUR ---
PT BACK FROM CT
[2020-12-19 20:05] VITALS: BP 138/62
--- NOTE | 2020-12-19 20:44 | NUR ---
pt walked out self with steady gait. discussed picc care and how to protect it. any issues with picc return to er or iv infusion center
== END 2020-12-19 20:45 | disposition home or self-care (01) ==
LOC: ED 14:49
DX: T85.698A Other mechanical complication of other specified internal prosthetic devices, implants and grafts, initial encounter (principal); L03.116 Cellulitis of left lower limb; K21.9 Gastro-esophageal reflux disease without esophagitis; E11.9 Type 2 diabetes mellitus without complications; I10 Essential (primary) hypertension; E66.01 Morbid (severe) obesity due to excess calories; Z68.43 Body mass index [BMI] 50.0-59.9, adult; Z86.718 Personal history of other venous thrombosis and embolism; Z79.899 Other long term (current) drug therapy
CPT/HCPCS: 36573; 71045; 71260; 99285; C1725; Q9967

== ENCOUNTER 2021-02-15 18:43 | Inpatient (IN) | payer MEDICAID ==
[~2021-02-15] VITALS: Ht 195.6 cm; Wt 148.0 kg
[2021-02-15] MEDS ORDERED: SODIUM CHLORIDE FLUSH 10ML SYR IVF ONE (19:30)
[2021-02-15] MEDS ORDERED: AMPICILLIN/SULBACTAM 3 GM in SODIUM CHLORIDE 0.9% 100 ML IV ONE (19:30)
[2021-02-15 19:58] LABS: BASOPHILS % (AUTO) 1 % (0-1); EOSINOPHILS % (AUTO) 1 % (1-7); LYMPHOCYTES % (AUTO) 14 % (22-44); MEAN CORPUSCULAR HEMOGLOBIN 27.6 pg (27.5-34.5); MEAN CORPUSCULAR HGB CONC 32.7 g/dL (33.2-36.2); MEAN PLATELET VOLUME 7.7 fL (7.4-10.4); MONOCYTES % (AUTO) 7 % (2-9); NEUTROPHILS % (AUTO) 76 % (42-75); PLATELET COUNT 543 x10^3/uL (130-400); RED BLOOD COUNT 4.97 x10^6/uL (4.38-5.82); RED CELL DISTRIBUTION WIDTH 16.2 % (9.4-14.8)
[2021-02-15 19:59] LABS: MD NO
[2021-02-15 20:01] LABS: ALBUMIN 3.4 g/dL (3.4-5.0); ANION GAP 7 mmol/L (5-15); CALCIUM 8.6 mg/dL (8.5-10.1); CHLORIDE 111 mmol/L (98-107)
[2021-02-15] MEDS ORDERED: MORPHINE SULFATE 4 MG/ML, 1ML ONE ×2 (20:12→22:07)
--- NOTE | 2021-02-15 20:21 | NUR ---
PT TBADM. MEDICATED PER DEC. EDUCATED ON PLAN OF CARE
--- NOTE | 2021-02-15 20:21 | NUR ---
PT BIB EMS FOR RIGHT ANKLE PAIN AFTER HE TWISTED IT IN SOME ROCKS.
[2021-02-15] MEDS ORDERED: MORPHINE SULFATE 4 MG/ML, 1ML IVPush PRN (20:30)
[2021-02-15] MEDS ORDERED: ACETAMINOPHEN 325 MG TABLET PO PRN (21:00)
[2021-02-15] MEDS ORDERED: POLYETHYLENE GLYCOL 17 GM PACKET PO PRN (21:00)
[2021-02-15] MEDS ORDERED: BISACODYL 10 MG SUPP PR PRN (21:00)
[2021-02-15] MEDS ORDERED: ONDANSETRON ODT 4 MG PO PRN (21:00)
[2021-02-15 22:00] VITALS: BP 141/90
[2021-02-15] MEDS: metFORMIN 850 MG TABLET PO SCH (22:10)
[2021-02-15] MEDS: HEPARIN 5,000 UNITS/ML, 1ML SQ SCH (22:10)
[2021-02-15] MEDS: CARVEDILOL 3.125 MG TABLET PO SCH (22:10)
[2021-02-15] MEDS: morphine SULFATE 10 MG/ML, 1ML IVPush PRN (22:11)
[2021-02-16 01:12] VITALS: BP 125/79
[2021-02-16] MEDS: AMPICILLIN/SULBACTAM 3 GM in SODIUM CHLORIDE 0.9% 100 ML IV SCH ×4 (01:38→19:39)
[2021-02-16] MEDS: morphine SULFATE 10 MG/ML, 1ML IVPush PRN ×4 (01:38→12:11)
[2021-02-16] MEDS ORDERED: MORPHINE SULFATE 4 MG/ML, 1ML ONE (05:02)
[2021-02-16] MEDS: HEPARIN 5,000 UNITS/ML, 1ML SQ SCH ×3 (05:07→21:13)
[2021-02-16] MEDS: CARVEDILOL 3.125 MG TABLET PO SCH ×2 (05:08→17:02)
[2021-02-16 06:06] LABS: BASOPHILS % (AUTO) 1 % (0-1); EOSINOPHILS % (AUTO) 4 % (1-7); LYMPHOCYTES % (AUTO) 17 % (22-44); MEAN CORPUSCULAR HEMOGLOBIN 28.1 pg (27.5-34.5); MEAN CORPUSCULAR HGB CONC 33.3 g/dL (33.2-36.2); MEAN PLATELET VOLUME 7.9 fL (7.4-10.4); MONOCYTES % (AUTO) 15 % (2-9); NEUTROPHILS % (AUTO) 63 % (42-75); PLATELET COUNT 508 x10^3/uL (130-400); RED BLOOD COUNT 4.59 x10^6/uL (4.38-5.82)
[2021-02-16 06:09] LABS: MD NO
[2021-02-16 06:15] LABS: ANION GAP 7 mmol/L (5-15); CALCIUM 8.5 mg/dL (8.5-10.1); CHLORIDE 108 mmol/L (98-107)
[2021-02-16 07:44] VITALS: BP 134/84
[2021-02-16] MEDS: metFORMIN 850 MG TABLET PO SCH ×2 (08:26→17:00)
[2021-02-16] MEDS: THIAMINE 100MG TABLET PO SCH (08:26)
[2021-02-16] MEDS: MULTIVITAMIN 1 TABLET PO SCH (08:26)
[2021-02-16] MEDS: SENNA/DOCUSATE TABLET PO SCH (08:26)
[2021-02-16] MEDS: CHOLECALCIFEROL 5,000u TAB PO SCH (08:26)
[2021-02-16] MEDS: OXYcodone/APAP 5/325MG TABLET PO PRN ×3 (13:10→21:13)
[2021-02-16 13:38] VITALS: BP 116/81
[2021-02-16 18:50] VITALS: BP 137/86
[2021-02-17] MEDS: HEPARIN 5,000 UNITS/ML, 1ML SQ SCH ×2 (00:37→13:00)
[2021-02-17 00:50] VITALS: BP 123/81
[2021-02-17] MEDS: OXYcodone/APAP 5/325MG TABLET PO PRN ×3 (00:58→09:06)
[2021-02-17] MEDS: AMPICILLIN/SULBACTAM 3 GM in SODIUM CHLORIDE 0.9% 100 ML IV SCH ×2 (01:36→09:57)
[2021-02-17] MEDS: CARVEDILOL 3.125 MG TABLET PO SCH (05:20)
[2021-02-17 06:47] VITALS: BP 119/83
[2021-02-17 06:55] LABS: BASOPHILS % (AUTO) 1 % (0-1); EOSINOPHILS % (AUTO) 7 % (1-7); LYMPHOCYTES % (AUTO) 22 % (22-44); MEAN CORPUSCULAR HEMOGLOBIN 27.4 pg (27.5-34.5); MEAN CORPUSCULAR HGB CONC 32.6 g/dL (33.2-36.2); MEAN PLATELET VOLUME 7.9 fL (7.4-10.4); MONOCYTES % (AUTO) 15 % (2-9); NEUTROPHILS % (AUTO) 55 % (42-75); PLATELET COUNT 394 x10^3/uL (130-400); RED BLOOD COUNT 4.86 x10^6/uL (4.38-5.82); RED CELL DISTRIBUTION WIDTH 16.3 % (9.4-14.8)
[2021-02-17 07:00] LABS: MD NO
[2021-02-17 07:07] LABS: ANION GAP 4 mmol/L (5-15); CALCIUM 8.9 mg/dL (8.5-10.1); CHLORIDE 107 mmol/L (98-107); CREATININE 0.86 mg/dL (0.7-1.3)
[2021-02-17] MEDS: metFORMIN 850 MG TABLET PO SCH (09:07)
[2021-02-17] MEDS: MULTIVITAMIN 1 TABLET PO SCH (09:11)
[2021-02-17] MEDS: THIAMINE 100MG TABLET PO SCH (09:12)
[2021-02-17] MEDS: CHOLECALCIFEROL 5,000u TAB PO SCH (09:12)
[2021-02-17] MEDS: SENNA/DOCUSATE TABLET PO SCH (09:12)
[2021-02-17] MEDS ORDERED: EPINEPHRINE SYRINGE 0.1 MG/ML, 10ML ONE (09:34)
[2021-02-17] MEDS ORDERED: AMIODARONE 50 MG/ML, 3ML ONE (09:34)
[2021-02-17] MEDS ORDERED: CALCIUM CHLORIDE 10%, 10ML SYR ONE (09:34)
[2021-02-17] MEDS: morphine SULFATE 10 MG/ML, 1ML IVPush PRN (10:21)
[2021-02-17] MEDS ORDERED: EPINEPHRINE 1 MG/ML, 1ML ONE (10:54)
[2021-02-17] MEDS ORDERED: BUPIVACAINE/PF 0.5% ONE (10:54)
[2021-02-17] MEDS ORDERED: CHLORHEXIDINE 15 ML UDC ONE (11:53)
[2021-02-17] MEDS ORDERED: CHLORHEXIDINE 15 ML UDC PO ONE (12:00)
[2021-02-17] MEDS ORDERED: OXYcodone 5 MG/5 ML ORAL.SOL UDC PO PRN (12:30)
[2021-02-17] MEDS ORDERED: KETOROLAC 30 MG/1 ML IVPush PRN (12:30)
[2021-02-17] MEDS ORDERED: MEPERIDINE/PF 25MG/0.5ML IVPush PRN (12:30)
[2021-02-17] MEDS ORDERED: FENTANYL PF 100 MCG/2ML IV PRN (12:30)
[2021-02-17] MEDS ORDERED: HYDROmorphone 1 MG/ML, 1ML INJ IVPush PRN (12:30)
[2021-02-17] MEDS ORDERED: PROMETHAZINE 25 MG/ML, 1ML IVPush PRN (12:30)
[2021-02-17] MEDS ORDERED: HYDROcodone/APAP 7.5-325MG/15ML UDC PO PRN (12:30)
[2021-02-17] MEDS ORDERED: ONDANSETRON 2MG/ML, 2ML IVPush PRN (12:30)
== END 2021-02-17 14:43 | disposition expired | DRG 563 ==
LOC: ED 19:56 → EDIP 20:21 → 4NE 21:39
PROVIDERS: ADMIT Internal Medicine; ATTEND Internal Medicine
PROC: 5A12012 Performance of Cardiac Output, Single, Manual (ICD-10-PCS; 2021-02-17)
PROC: 0BH17EZ Insertion of Endotracheal Airway into Trachea, Via Natural or Artificial Opening (ICD-10-PCS; 2021-02-17)
PROC: 0BJ08ZZ Inspection of Tracheobronchial Tree, Via Natural or Artificial Opening Endoscopic (ICD-10-PCS; principal; 2021-02-17 14:00)
DX: S82.61XA Displaced fracture of lateral malleolus of right fibula, initial encounter for closed fracture (principal); L03.115 Cellulitis of right lower limb; L97.909 Non-pressure chronic ulcer of unspecified part of unspecified lower leg with unspecified severity; E66.01 Morbid (severe) obesity due to excess calories; E78.5 Hyperlipidemia, unspecified; F17.210 Nicotine dependence, cigarettes, uncomplicated; E11.9 Type 2 diabetes mellitus without complications; I87.2 Venous insufficiency (chronic) (peripheral); I46.9 Cardiac arrest, cause unspecified; I10 Essential (primary) hypertension; I95.9 Hypotension, unspecified; Z20.822 Contact with and (suspected) exposure to COVID-19; K21.9 Gastro-esophageal reflux disease without esophagitis; W01.0XXA Fall on same level from slipping, tripping and stumbling without subsequent striking against object, initial encounter; Z59.0 Homelessness; Z82.61 Family history of arthritis; Z86.718 Personal history of other venous thrombosis and embolism; Z91.19 Patient's noncompliance with other medical treatment and regimen; Z79.899 Other long term (current) drug therapy; Z68.38 Body mass index [BMI] 38.0-38.9, adult
CPT/HCPCS: 36415; 73590; 73600; 76000; 96374; 96375; 99285; S0020; 80048; 82040; 83036; 85025; 87635; 93312; C1713; G0378; J0171; J0295; J1644; J0282; J2270

== ENCOUNTER → 2021-02-17 | Outpatient (CLI) | payer MEDICAID ==
[~2021-02-17] MED LIST changes: +CEFAZOLIN 1,000 MG ONE; -DOXY100C2 PO; +DOXY100C5 PO; +FENTANYL PF 100 MCG/2ML ONE; +GLYCOPYRROLATE 0.2MG/1ML, 5ML ONE; +MIDAZOLAM 1 MG/ML, 2ML ONE; +MILRINONE 1 MG/ML, 10ML IV ONE; +NEOSTIGMINE 1 MG/ML, 10ML ONE; +ONDANSETRON 2MG/ML, 2ML ONE; +PROPOFOL 10 MG/ML, 20ML ONE; +ROCURONIUM 10MG/ML,5ML ONE; +SUCCINYLCHOLINE 20 MG/ML, 10ML ONE
== END | disposition home or self-care (01) ==
LOC: WOUND 08:00
PROVIDERS: ATTEND Internal Medicine
DX: Z02.9 Encounter for administrative examinations, unspecified (principal)
CPT/HCPCS: J0690; J2250; J2260; J2405; J2704; J2710; J3010; J0330